=== PATIENT | female | born 1955 ===

== ENCOUNTER 2025-07-03 07:00 | Day surgery (SDC) | payer OTHER ==
[2025-06-26 12:34] VITALS: BP 149/82
[~2025-07-03] VITALS: Ht 154.9 cm; Wt 59.0 kg
[~2025-07-03 07:00] MED LIST: ACID CONTROLLER20 MG PO; LIPITOR20 MG; MELATONIN1 MG; OMEPRAZOLE40 MG PO; TOPROL XL50 M1 PO; VITAMIN B122500 MCG
[2025-07-03] MEDS ORDERED: CEFAZOLIN SODIUM 1,000 MG VIAL ONE (08:12)
[2025-07-03] MEDS ORDERED: GENTAMICIN SULFATE 40 MG/ML VIAL ONE (09:31)
[2025-07-03] MEDS ORDERED: TRAM1TAB98 PO (11:17)
[2025-07-03] MEDS ORDERED: MACROBID 100 M100 MG PO (11:17)
[2025-07-03 15:26] VITALS: BP 105/63; O2SAT 100
== END 2025-07-03 15:35 | disposition home or self-care (01) ==
LOC: CIR.AMB 07:00
PROVIDERS: ATTEND Obstetrics & Gynecology Gynecology
DX: N81.11 Cystocele, midline (principal); N81.5 Vaginal enterocele